=== PATIENT | female | born 1945 | race Asian ===

== ENCOUNTER 2017-10-01 13:30 | Outpatient (RCR) | payer OTHER | END 2017-10-03 | disposition home or self-care (01) | LOC: PTY 13:30 | PROVIDERS: ATTEND Internal Medicine | DX: M25.511 Pain in right shoulder (principal) ==

== ENCOUNTER 2017-10-08 15:00 | Outpatient (RCR) | payer OTHER | END 2017-11-03 | disposition home or self-care (01) | LOC: PTY 15:00 | PROVIDERS: ATTEND Internal Medicine | DX: M25.511 Pain in right shoulder (principal) ==

== ENCOUNTER 2017-11-22 15:00 | Outpatient (RCR) | payer OTHER | END 2017-12-03 | disposition home or self-care (01) | LOC: PTY 15:00 | PROVIDERS: ATTEND Internal Medicine | DX: M25.511 Pain in right shoulder (principal) ==

== ENCOUNTER 2017-12-06 11:03 | Outpatient (RCR) | payer OTHER | END 2018-01-03 | disposition home or self-care (01) | LOC: PTY 11:03 | PROVIDERS: ATTEND Internal Medicine | DX: M25.511 Pain in right shoulder (principal) ==